=== PATIENT | male | born 1995 | race African-American/Black ===

== ENCOUNTER 2017-05-05 23:05 | Emergency (ER) | payer SELFPAY ==
[~2017-05-05] VITALS: Ht 175.3 cm; Wt 82.0 kg
[~2017-05-05 23:05] MED LIST: ABIL10
[2017-05-05 23:06] VITALS: BP 122/77
== END 2017-05-06 03:00 | disposition left against medical advice (07) ==
LOC: ER 23:28
DX: Z53.21 Procedure and treatment not carried out due to patient leaving prior to being seen by health care provider (principal)
CPT/HCPCS: 82962

== ENCOUNTER 2017-05-08 22:23 | Emergency (ER) | payer SELFPAY ==
[~2017-05-08] VITALS: Ht 172.7 cm; Wt 78.0 kg
[2017-05-08 22:59] VITALS: BP 132/81
== END 2017-05-09 02:30 | disposition left against medical advice (07) ==
LOC: ER 22:23
DX: Z00.8 Encounter for other general examination (principal); Z53.21 Procedure and treatment not carried out due to patient leaving prior to being seen by health care provider